=== PATIENT | male | born 2005 | race Asian ===

== ENCOUNTER 2025-03-11 13:15 | Emergency (ER) | payer OTHER, SELFPAY ==
[2025-03-11 13:22] VITALS: BP 134/67
--- NOTE | 2025-03-11 13:52 | ED.GENMED ---
History of Present Illness
General
Chief Complaint: Musculo-Skeletal Complaint
Source: patient
Exam Limitations: none
Time Seen by Provider: 03/11/25 13:35
History of Present Illness
History of Present Illness:
19yo [id number] male presenting for evaluation of right shoulder pain. Patient was at college attending a sporting event 2 weeks ago when he fell off the bleachers and someone stepped directly onto his right shoulder. He was seen at an ED
near his college and had x-rays done at that time and was diagnosed with a grade 1 AC joint sprain. He was given a shoulder sling and was told that his symptoms should start to improve in a few days. He continues to have pain in that area and
decided to come to the ED for a recheck. No further trauma. No paresthesias.
Past History
Social History
Tobacco: Non-smoker
Alcohol: None
Drug: None
Phy Exam
General Physical Exam
General Presentation: well appearing and no apparent distress
General age: appears stated age
General Skin: warm and dry
General Habitus: normal
General Mental: alert
ENT Exam
ENT Exam: normocephalic
Pulmonary Exam
Pulmonary Exam: no respiratory distress
Neurological Exam
Neurological Exam: alert
Ambar Coma Scale
Eye Opening: Spontaneous
Verbal Response: Oriented
Motor Response: Obeys Commands
GCS Total Score: 15
Musculoskeletal Exam
Musculoskeletal Exam: other (R shoulder: No deformity or soft tissue swelling. +Tenderness at AC joint. ROM normal although pain elicited with internal rotation. 2+ radial pulse and sensation intact.)
Skin Exam
Skin Exam: normal color and warm/dry
Psychiatric Exam
Psychiatric Exam: normal mood/affect
Course
Orders/Labs/Results
Orders:
Orders
03/11/25 13:26
Shoulder, Right, Trauma [CR Shoulder, Trauma - Right] Urgent
Comment: two wks ago. still having pain
Reason For Exam: tripped fell and someone stepped on his shoulder
Vital Signs
Initial and Last Documented VS:
Initial Vital Signs
Temp Pulse Resp BP Pulse Ox
98.3 F 100 16 134/67 98
03/11/25 13:22 03/11/25 13:22 03/11/25 13:22 03/11/25 13:22 03/11/25 13:22
Last Documented Vital Signs
Temp Pulse Resp BP Pulse Ox
98.3 F 100 16 134/67 98
03/11/25 13:22 03/11/25 13:22 03/11/25 13:22 03/11/25 13:22 03/11/25 13:53
MDM/Problems Addressed
Differential Diagnosis Includes:
19yoM here with ongoing R shoulder pain after an injury 2 weeks ago. Diagnosed with a grade 1 AC joint sprain at an outside ED. Shoulder appears normal to inspection. There is tenderness to the AC joint. RUE is neurovascularly intact. Differential
diagnosis includes: shoulder separation, AC sprain, doubt fracture
X-rays of shoulder obtained in triage which appear normal per my interpretation. Supportive care discussed including gentle ROM exercises. He was instructed to f/u with orthopedics if symptoms persist.
*Pulse Oximetry
SaO2: 98
Oxygen Mode of Delivery: Room air
Patient hypoxic: no
*Critical Care Note
Total Time (30-74mins, 75-104mins- exclusive of procedures): Not Applicable
ED Attending Note
-
Portions of this chart may have been created with voice recognition software.� Occasional wrong word or��sound alike� substitutions may have occurred due to the inherent limitations of voice recognition software.
Discharge Plan
Departure
Patient Disposition: Home (Routine Discharge)
Date of Disposition: 03/11/25
Time of Disposition: 13:55
Patient with high blood pressure during this ER visit?: No
Discharge Problem:
Sprain of right acromioclavicular joint
Instructions: Shoulder Sprain ED
Prescriptions:
No Action
acetaminophen [Feverall] 120 MG/SUPP.RECT suppository
240 mg RC Q4 PRN (Reason: fever) Qty: 20 0RF
ondansetron 4 MG tablet,disintegrating
4 mg PO Q8 Qty: 10 0RF
Referrals:
Adonis Jacome MD [Active, Orthopedics]
Bassem Lobo MD [Active, Orthopedics]
Activity Restrictions/Additional Instructions:
Apply ice to affected area. You may take ibuprofen as needed for pain. Continue to use shoulder sling as needed but you may do gentle range of motion exercises.
Please follow-up with orthopedics if symptoms persist.
Interventions
Interventions:
*General Assessment Last Done: 03/11/25 13:22
*Neglect/Abuse Screening Last Done: 03/11/25 13:22
*ED COVID-19 Vaccine History Last Done: 03/11/25 13:22
*ED Influenza Vaccine History Last Done: 03/11/25 13:22
*Risk Screen - Suicide (C-SSRS) Last Done: 03/11/25 14:06
*Nursing Disposition Last Done: 03/11/25 14:33
ED-Musculoskeletal Assessment Last Done: 03/11/25 14:33
Discharge Date and Time
Discharge Date/Time: 03/11/25 14:34
Print Language: THAI
== END 2025-03-11 14:34 | disposition home or self-care (01) ==
LOC: EMR 13:15
PROVIDERS: EMERGENCY PHYSICIAN Student in an Organized Health Care Education/Training Program
DX: S43.51XA Sprain of right acromioclavicular joint, initial encounter (principal); W01.0XXA Fall on same level from slipping, tripping and stumbling without subsequent striking against object, initial encounter; W50.0XXA Accidental hit or strike by another person, initial encounter; Y92.219 Unspecified school as the place of occurrence of the external cause
CPT/HCPCS: 99283; 73030